=== PATIENT | male | born 1955 | race Caucasian/White ===

== ENCOUNTER 2021-08-21 13:59 | Inpatient (IN) | payer MEDICARE, OTHER ==
[~2021-08-21] VITALS: Ht 170.2 cm; Wt 87.2 kg
[2021-08-21] MEDS ORDERED: SODIUM CHLORIDE 0.9% 1000ML 1,000 ML IV STA (14:16)
[2021-08-21 14:20] LABS: BASOPHILS % 0.3 % (0.0-1.0); EOSINOPHILS # (AUTO) 0.1 (0.0-0.4); EOSINOPHILS % 0.5 % (0.0-6.0); HEMATOCRIT 37.5 % (38.2-49.6); HEMOGLOBIN 11.7 g/dL (14.0-18.0); LYMPHOCYTES # (AUTO) 1.6 (1.0-3.2); LYMPHOCYTES % 16.5 % (18.0-39.1); MEAN CORPUSCULAR HGB CONC 31.2 g/dL (31-35); MEAN CORPUSCULAR VOLUME 86.6 fL (81-99); MONOCYTES # (AUTO) 1.1 (0.2-0.8); MONOCYTES % 11.3 % (4.4-11.3); NEUTROPHILS # (AUTO) 6.8 (2.1-6.9); PLATELET COUNT 227 x10e3/uL (140-360); RED BLOOD COUNT 4.33 x10e6/uL (4.3-5.7); RED CELL DISTRIBUTION WIDTH 13.7 % (11.7-14.4)
[2021-08-21] MEDS ORDERED: Vancomycin IV 1 GM in SODIUM CHLORIDE 0.9% 250ML 250 ML IV ONE (14:30)
[2021-08-21] MEDS ORDERED: PIPERACILLIN/TAZOBACTAM 3.375 GM in SODIUM CHLORIDE 0.9% 50ML 50 ML IV ONE (14:30)
[2021-08-21 14:35] LABS: INR 1.09; PROTHROMBIN TIME 14.9 seconds (11.9-14.5)
[2021-08-21 14:36] LABS: PARTIAL THROMBOPLASTIN TIME 27.3 seconds (23.8-35.5)
[2021-08-21 14:39] LABS: ALANINE AMINOTRANSFERASE < 6 IU/L (0-55); ALBUMIN 3.3 g/dL (3.5-5.0); ALBUMIN/GLOBULIN RATIO 0.9 (0.8-2.0); ALKALINE PHOSPHATASE 53 IU/L (40-150); BLOOD UREA NITROGEN 29 mg/dL (7-26); BUN/CREATININE RATIO 23 (6-25); CALCIUM 9.1 mg/dL (8.4-10.2); CARBON DIOXIDE 25 mmol/L (22-29); CHLORIDE 101 mmol/L (98-107); CREATINE KINASE 239 IU/L (30-200); CREATININE, SERUM 1.24 mg/dL (0.72-1.25); EST GLOMERULAR FILTRATION RATE 58 ML/MIN (60-); GLUCOSE 115 mg/dL (74-118); MAGNESIUM 1.8 MG/DL (1.3-2.1); SODIUM 140 mmol/L (136-145)
[2021-08-21 14:41] LABS: CLARITY,URINE SL CLOUDY (CLEAR); COLOR,URINE AMBER (YELLOW); KETONES,URINE TRACE (NEGATIVE); LEUKOCYTE ESTERASE ,URINE NEGATIVE (NEGATIVE); NITRITE,URINE NEGATIVE (NEGATIVE); PROTEIN,URINE DIPSTICK TRACE (NEGATIVE); URINE UROBILINOGEN 0.2 mg/dL (0.2 - 1)
[2021-08-21 14:58] LABS: THYROID STIMULATING HORMONE 1.614 uIU/mL (0.350-4.940)
[2021-08-21 15:01] LABS: AMORPHOUS SEDIMENT,URINE FEW (FEW); BACTERIA,URINE MODERATE /HPF; HYALINE CASTS 0-1 (0-1)
[2021-08-21] MEDS ORDERED: ASPIRIN81 MG PO (15:14)
[2021-08-21] MEDS ORDERED: METFORMIN HCL500 M2 PO (15:14)
[2021-08-21] MEDS ORDERED: HYDROCHLOROTH12.5 MG PO (15:14)
[2021-08-21] MEDS ORDERED: ROPINIROLE HC0.25 MG PO (15:14)
[2021-08-21] MEDS ORDERED: CARBIDOPA/LEVODOPA PO ×2 (15:14)
[2021-08-21] MEDS ORDERED: ONDANSETRON HCL INJ 2MG/ML 2ML 2 MG/ML VIAL IV PRN (15:45)
[2021-08-21 16:36] VITALS: BP 123/64
[2021-08-21] MEDS ORDERED: METFORMIN HCL500 MG PO (17:04)
[2021-08-21 17:27] VITALS: BP 123/64
[2021-08-21] MEDS: ACETAMINOPHEN 325 MG TAB PO PRN (18:01)
[2021-08-21] MEDS: SODIUM CHLORIDE 0.9% 1000ML 1,000 ML IV SCH (18:06)
[2021-08-21] MEDS ORDERED: DEXTROSE 50% SYRINGE 50 ML IV PRN (19:00)
[2021-08-21 20:04] VITALS: BP 143/73
[2021-08-21 20:35] VITALS: BP 143/73
[2021-08-21 20:38] VITALS: BP 144/70
[2021-08-21] MEDS: CARBIDOPA/LEVODOPA 25/100 TAB PO SCH (20:52)
[2021-08-21] MEDS: INSULIN LISPRO 100 UNIT/1 ML 3ML VIAL SQ SCH (20:58)
[2021-08-21 23:50] LABS: CREATINE KINASE MB 1.5 ng/mL (0-5.0)
[2021-08-22] VITALS (9 sets, daily range): BP systolic 127–139; BP diastolic 62–71
[2021-08-22] MEDS: ACETAMINOPHEN 325 MG TAB PO PRN (01:00)
[2021-08-22] MEDS: HYDROCODONE/APAP 7.5MG-325MG 1 EA TAB PO PRN ×2 (04:40→18:02)
[2021-08-22 05:28] LABS: BASOPHILS % 0.4 % (0.0-1.0); EOSINOPHILS # (AUTO) 0.1 (0.0-0.4); EOSINOPHILS % 1.4 % (0.0-6.0); HEMATOCRIT 33.4 % (38.2-49.6); HEMOGLOBIN 10.7 g/dL (14.0-18.0); LYMPHOCYTES # (AUTO) 1.6 (1.0-3.2); LYMPHOCYTES % 22.2 % (18.0-39.1); MEAN CORPUSCULAR HEMOGLOBIN 26.9 pg (28-32); MEAN CORPUSCULAR VOLUME 83.9 fL (81-99); MONOCYTES # (AUTO) 0.8 (0.2-0.8); MONOCYTES % 11.4 % (4.4-11.3); NEUTROPHILS # (AUTO) 4.5 (2.1-6.9); NEUTROPHILS % 64.3 % (38.7-80.0); PLATELET COUNT 203 x10e3/uL (140-360); RED BLOOD COUNT 3.98 x10e6/uL (4.3-5.7); RED CELL DISTRIBUTION WIDTH 13.3 % (11.7-14.4)
[2021-08-22] MEDS: SODIUM CHLORIDE 0.9% 1000ML 1,000 ML IV SCH (05:51)
[2021-08-22 06:04] LABS: CALCIUM IONIZED 1.1 mmol/L (1.09-1.30)
[2021-08-22 06:07] LABS: CHOL/HDL RATIO 4.4 (3.9-4.7)
[2021-08-22 06:13] LABS: ALBUMIN 2.9 g/dL (3.5-5.0); ALBUMIN/GLOBULIN RATIO 0.9 (0.8-2.0); ALKALINE PHOSPHATASE 48 IU/L (40-150); ANION GAP 13.7 mmol/L (8-16); BLOOD UREA NITROGEN 23 mg/dL (7-26); BUN/CREATININE RATIO 26 (6-25); CALCIUM 8.7 mg/dL (8.4-10.2); CARBON DIOXIDE 24 mmol/L (22-29); CHLORIDE 105 mmol/L (98-107); CREATININE, SERUM 0.87 mg/dL (0.72-1.25); EST GLOMERULAR FILTRATION RATE 88 ML/MIN (60-); GLUCOSE 95 mg/dL (74-118); POTASSIUM 3.7 mmol/L (3.5-5.1); SODIUM 139 mmol/L (136-145)
[2021-08-22 06:21] LABS: MAGNESIUM 1.6 MG/DL (1.3-2.1)
[2021-08-22 06:21] LABS: CREATINE KINASE MB 1.6 ng/mL (0-5.0)
[2021-08-22 06:28] LABS: THYROID STIMULATING HORMONE 1.915 uIU/mL (0.350-4.940)
[2021-08-22 06:35] LABS: ALANINE AMINOTRANSFERASE < 6 IU/L (0-55)
[2021-08-22 06:41] LABS: FERRITIN 146.74 ng/mL (21.81-274.66)
[2021-08-22] MEDS: INSULIN LISPRO 100 UNIT/1 ML 3ML VIAL SQ SCH ×4 (07:30→21:00)
[2021-08-22] MEDS ORDERED: ONDANSETRON HCL 4 MG ORAL DISINTEGRATING TAB PO PRN (09:00)
[2021-08-22] MEDS: CARBIDOPA/LEVODOPA 25/100 TAB PO SCH ×4 (09:29→21:55)
[2021-08-22] MEDS: CYANOCOBALAMIN 1,000 MCG TAB PO SCH (10:33)
[2021-08-22] MEDS: BACLOFEN 10 MG TAB PO PRN ×2 (14:00→21:55)
[2021-08-22] MEDS ORDERED: SIMVASTATIN20 MG PO (14:12)
[2021-08-22] MEDS ORDERED: SINEMET 25-1001 EACH PO (14:12)
[2021-08-22] MEDS ORDERED: CARBIDOPA/LEVODOPA 25/250 TAB PO SCH (17:00)
[2021-08-23] VITALS (8 sets, daily range): BP systolic 132–152; BP diastolic 61–72
[2021-08-23] MEDS: CARBIDOPA/LEVODOPA 25/100 TAB PO SCH ×5 (05:08→21:23)
[2021-08-23] MEDS: BACLOFEN 10 MG TAB PO PRN ×3 (05:08→21:33)
[2021-08-23] MEDS: HYDROCODONE/APAP 7.5MG-325MG 1 EA TAB PO PRN ×3 (05:28→21:23)
[2021-08-23] MEDS: INSULIN LISPRO 100 UNIT/1 ML 3ML VIAL SQ SCH ×4 (07:30→21:25)
[2021-08-23] MEDS: CYANOCOBALAMIN 1,000 MCG TAB PO SCH (09:23)
[2021-08-23] MEDS: ENOXAPARIN SOD INJ 40 MG/0.4 ML SYR SC SCH (16:09)
[2021-08-24] VITALS (8 sets, daily range): BP systolic 136–165; BP diastolic 71–77
[2021-08-24] MEDS: BACLOFEN 10 MG TAB PO PRN ×2 (04:52→16:28)
[2021-08-24] MEDS: CARBIDOPA/LEVODOPA 25/100 TAB PO SCH ×5 (04:52→21:35)
[2021-08-24] MEDS: HYDROCODONE/APAP 7.5MG-325MG 1 EA TAB PO PRN ×2 (04:52→20:00)
[2021-08-24 05:19] LABS: BASOPHILS % 0.6 % (0.0-1.0); EOSINOPHILS # (AUTO) 0.1 (0.0-0.4); EOSINOPHILS % 2.1 % (0.0-6.0); HEMATOCRIT 36.3 % (38.2-49.6); HEMOGLOBIN 11.4 g/dL (14.0-18.0); LYMPHOCYTES # (AUTO) 1.6 (1.0-3.2); LYMPHOCYTES % 30.1 % (18.0-39.1); MEAN CORPUSCULAR HGB CONC 31.4 g/dL (31-35); MEAN CORPUSCULAR VOLUME 85.8 fL (81-99); MONOCYTES # (AUTO) 0.5 (0.2-0.8); MONOCYTES % 10.1 % (4.4-11.3); NEUTROPHILS % 56.9 % (38.7-80.0); PLATELET COUNT 218 x10e3/uL (140-360); RED BLOOD COUNT 4.23 x10e6/uL (4.3-5.7); RED CELL DISTRIBUTION WIDTH 13.1 % (11.7-14.4)
[2021-08-24 06:13] LABS: ALANINE AMINOTRANSFERASE < 6 IU/L (0-55); ALBUMIN/GLOBULIN RATIO 0.9 (0.8-2.0); ALKALINE PHOSPHATASE 49 IU/L (40-150); ANION GAP 14.9 mmol/L (8-16); BLOOD UREA NITROGEN 20 mg/dL (7-26); BUN/CREATININE RATIO 24 (6-25); CALCIUM 8.9 mg/dL (8.4-10.2); CARBON DIOXIDE 24 mmol/L (22-29); CHLORIDE 106 mmol/L (98-107); CREATININE, SERUM 0.84 mg/dL (0.72-1.25); EST GLOMERULAR FILTRATION RATE 91 ML/MIN (60-); GLUCOSE 88 mg/dL (74-118); MAGNESIUM 1.8 MG/DL (1.3-2.1); POTASSIUM 3.9 mmol/L (3.5-5.1); SODIUM 141 mmol/L (136-145)
[2021-08-24] MEDS: INSULIN LISPRO 100 UNIT/1 ML 3ML VIAL SQ SCH ×4 (07:30→21:00)
[2021-08-24] MEDS: CYANOCOBALAMIN 1,000 MCG TAB PO SCH (09:41)
[2021-08-24] MEDS: ENOXAPARIN SOD INJ 40 MG/0.4 ML SYR SC SCH (16:28)
[2021-08-24] MEDS: CYCLOBENZAPRINE HCL 10 MG TAB PO PRN (21:36)
[2021-08-24] MEDS: GABAPENTIN 300 MG CAP PO SCH (23:35)
[2021-08-25] VITALS (8 sets, daily range): BP systolic 136–163; BP diastolic 57–78
[2021-08-25] MEDS: GABAPENTIN 300 MG CAP PO SCH ×3 (05:37→20:52)
[2021-08-25] MEDS: CARBIDOPA/LEVODOPA 25/100 TAB PO SCH ×5 (05:37→20:52)
[2021-08-25] MEDS: INSULIN LISPRO 100 UNIT/1 ML 3ML VIAL SQ SCH ×4 (07:30→20:52)
[2021-08-25] MEDS: CYANOCOBALAMIN 1,000 MCG TAB PO SCH (09:19)
[2021-08-25] MEDS: LISINOPRIL 10 MG TAB PO SCH (13:35)
[2021-08-25] MEDS: ENOXAPARIN SOD INJ 40 MG/0.4 ML SYR SC SCH (16:36)
[2021-08-26] VITALS (7 sets, daily range): BP systolic 132–172; BP diastolic 66–83
[2021-08-26] MEDS: GABAPENTIN 300 MG CAP PO SCH ×4 (05:00→21:12)
[2021-08-26] MEDS: CARBIDOPA/LEVODOPA 25/100 TAB PO SCH ×5 (05:00→21:12)
[2021-08-26] MEDS: BACLOFEN 10 MG TAB PO PRN (05:01)
[2021-08-26] MEDS: INSULIN LISPRO 100 UNIT/1 ML 3ML VIAL SQ SCH ×4 (07:30→21:12)
[2021-08-26] MEDS: LISINOPRIL 10 MG TAB PO SCH (09:40)
[2021-08-26] MEDS: CYANOCOBALAMIN 1,000 MCG TAB PO SCH (09:40)
[2021-08-26] MEDS: ENOXAPARIN SOD INJ 40 MG/0.4 ML SYR SC SCH (16:56)
[2021-08-27] VITALS (7 sets, daily range): BP systolic 136–168; BP diastolic 63–124
[2021-08-27] MEDS: CARBIDOPA/LEVODOPA 25/100 TAB PO SCH ×5 (04:34→20:21)
[2021-08-27] MEDS: BACLOFEN 10 MG TAB PO PRN ×3 (04:35→20:21)
[2021-08-27] MEDS: INSULIN LISPRO 100 UNIT/1 ML 3ML VIAL SQ SCH ×4 (07:30→21:20)
[2021-08-27] MEDS ORDERED: BISACODYL 10 MG SUPP PR PRN (08:45)
[2021-08-27] MEDS: LISINOPRIL 10 MG TAB PO SCH (09:02)
[2021-08-27] MEDS: CYANOCOBALAMIN 1,000 MCG TAB PO SCH (09:03)
[2021-08-27] MEDS: GABAPENTIN 300 MG CAP PO SCH ×3 (09:03→20:21)
[2021-08-27] MEDS: POLYETHYLENE GLYCOL 3350 17 GM PACK PO SCH ×2 (10:49→16:29)
[2021-08-27] MEDS: CYCLOBENZAPRINE HCL 10 MG TAB PO PRN (14:26)
[2021-08-28] VITALS: BP 150/76
[2021-08-28] MEDS: CARBIDOPA/LEVODOPA 25/100 TAB PO SCH ×3 (00:59→12:57)
[2021-08-28 04:30] VITALS: BP 157/76
[2021-08-28 05:52] LABS: BASOPHILS % 0.3 % (0.0-1.0); EOSINOPHILS # (AUTO) 0.1 (0.0-0.4); HEMATOCRIT 35.8 % (38.2-49.6); LYMPHOCYTES # (AUTO) 1.7 (1.0-3.2); MEAN CORPUSCULAR HEMOGLOBIN 27.4 pg (28-32); MEAN CORPUSCULAR HGB CONC 33.5 g/dL (31-35); MEAN CORPUSCULAR VOLUME 81.7 fL (81-99); MONOCYTES # (AUTO) 0.9 (0.2-0.8); MONOCYTES % 12.9 % (4.4-11.3); NEUTROPHILS # (AUTO) 4.3 (2.1-6.9); NEUTROPHILS % 60.4 % (38.7-80.0); PLATELET COUNT 190 x10e3/uL (140-360); RED BLOOD COUNT 4.38 x10e6/uL (4.3-5.7); RED CELL DISTRIBUTION WIDTH 13.1 % (11.7-14.4)
[2021-08-28 06:20] LABS: ALANINE AMINOTRANSFERASE < 6 IU/L (0-55); ALBUMIN 3.1 g/dL (3.5-5.0); ALBUMIN/GLOBULIN RATIO 0.9 (0.8-2.0); ALKALINE PHOSPHATASE 58 IU/L (40-150); BLOOD UREA NITROGEN 21 mg/dL (7-26); BUN/CREATININE RATIO 22 (6-25); CALCIUM 8.5 mg/dL (8.4-10.2); CARBON DIOXIDE 28 mmol/L (22-29); CHLORIDE 104 mmol/L (98-107); CREATININE, SERUM 0.94 mg/dL (0.72-1.25); EST GLOMERULAR FILTRATION RATE 80 ML/MIN (60-); GLUCOSE 103 mg/dL (74-118); MAGNESIUM 1.8 MG/DL (1.3-2.1); SODIUM 140 mmol/L (136-145)
[2021-08-28] MEDS: INSULIN LISPRO 100 UNIT/1 ML 3ML VIAL SQ SCH ×2 (07:30→11:30)
[2021-08-28 08:00] VITALS: BP 163/75
[2021-08-28 08:02] VITALS: BP 157/76
[2021-08-28] MEDS: GABAPENTIN 300 MG CAP PO SCH ×2 (08:20→14:05)
[2021-08-28] MEDS: POLYETHYLENE GLYCOL 3350 17 GM PACK PO SCH (08:20)
[2021-08-28] MEDS ORDERED: BUPIVACAINE HCL 0.5% INJ 30 ML VIAL INJ ONE (08:57)
[2021-08-28] MEDS ORDERED: MUPIROCIN 2% OINT 22 GM TUBE ONE (08:57)
[2021-08-28] MEDS ORDERED: MUPIROCIN 2% OINT 22 GM TUBE TOP SCH (09:00)
[2021-08-28] MEDS ORDERED: LIDOCAINE 2%/ EPINEPHRINE 20ML MDV ONE (09:09)
[2021-08-28] MEDS ORDERED: Vancomycin IV 1 GM VIAL ONE (09:33)
[2021-08-28 11:53] VITALS: BP 145/68
[2021-08-28] MEDS ORDERED: ONDANSETRON HCL INJ 2MG/ML 2ML 2 MG/ML VIAL ONE (12:05)
[2021-08-28] MEDS ORDERED: PROPOFOL IV EMULSION 10 MG/ML 20 ML VIAL ONE (12:05)
[2021-08-28] MEDS ORDERED: LIDOCAINE HCL 2% LOCAL INJ 5 ML SDV VIAL INJ ONE (12:05)
[2021-08-28] MEDS ORDERED: EPHEDRINE SULFATE INJ 50 MG/ML VIAL ONE (12:05)
[2021-08-28] MEDS ORDERED: SEVOFLURANE INHAL SOLN 250 ML PEN BTL ONE (12:05)
[2021-08-28] MEDS ORDERED: POVIDONE IODINE 0.05% 0.05 % ML PO ONE (12:05)
[2021-08-28] MEDS ORDERED: FENTANYL CITRATE/PF 100MCG/2 ML INJ ONE (12:27)
[2021-08-28] MEDS ORDERED: MIRALAX17 GM PO (12:44)
[2021-08-28] MEDS ORDERED: GABAPENTIN300 MG PO (12:44)
[2021-08-28] MEDS ORDERED: DULCOLAX SUPP10 MG PR (12:44)
[2021-08-28] MEDS ORDERED: LISINOPRIL10 MG PO (12:44)
[2021-08-28] MEDS ORDERED: VITAMIN B-121000 MCG PO (12:44)
[2021-08-28] MEDS ORDERED: Insulin Lispro SQ (12:44)
[2021-08-28] MEDS ORDERED: ACETAMINOPHEN325 M1 PO (12:44)
[2021-08-28] MEDS ORDERED: CARBIDOPA-LEVO1 EAC1 PO (12:44)
[2021-08-28] MEDS ORDERED: MUPIROCIN22 GM TOP (12:44)
[2021-08-28] MEDS ORDERED: HYDROCODON-ACE1 EA12 PO (12:44)
[2021-08-28] MEDS ORDERED: ONDANSETRON ODT4 MG PO (12:44)
[2021-08-28] MEDS: CYANOCOBALAMIN 1,000 MCG TAB PO SCH (12:57)
[2021-08-28] MEDS: LISINOPRIL 10 MG TAB PO SCH (12:57)
== END 2021-08-28 15:25 | DRG 623 ==
LOC: ER 14:05 → ERHOLD 15:45 → MED/SURG 16:22
PROVIDERS: ADMIT Internal Medicine; ATTEND Internal Medicine
PROC: 0JBQ0ZZ Excision of Right Foot Subcutaneous Tissue and Fascia, Open Approach (ICD-10-PCS; 2021-08-28)
PROC: 0HBHXZZ Excision of Right Upper Leg Skin, External Approach (ICD-10-PCS; 2021-08-28)
PROC: 0HRMX74 Replacement of Right Foot Skin with Autologous Tissue Substitute, Partial Thickness, External Approach (ICD-10-PCS; principal; 2021-08-28 09:00)
DX: E86.0 Dehydration (principal); M62.82 Rhabdomyolysis; T25.311A Burn of third degree of right ankle, initial encounter; N17.9 Acute kidney failure, unspecified; R53.1 Weakness; G20 Parkinson's disease; I10 Essential (primary) hypertension; Z20.822 Contact with and (suspected) exposure to COVID-19; R53.81 Other malaise; D63.8 Anemia in other chronic diseases classified elsewhere; E11.9 Type 2 diabetes mellitus without complications; Z96.82 Presence of neurostimulator; M10.9 Gout, unspecified; Z86.73 Personal history of transient ischemic attack (TIA), and cerebral infarction without residual deficits; Z81.2 Family history of tobacco abuse and dependence; Z79.82 Long term (current) use of aspirin; Z79.84 Long term (current) use of oral hypoglycemic drugs
CPT/HCPCS: 36415; 70450; 71045; 80053; 80061; 81001; 82140; 82550; 82553; 82607; 82728; 82746; 82948; 83540; 83605; 83735; 83880; 84443; 84466; 84484; 84550; 85025; 85610; 85730; 87040; 87086; 93005; 93306; 94799; 97139; 97605; 97606; 99251; 99284; J1650; J2001; J2405; J2543; J3010; J3370; J7030; J7050; Q0162; U0002

== ENCOUNTER 2021-09-14 20:47 | Inpatient (IN) | payer MEDICARE, OTHER ==
[~2021-09-14] VITALS: Ht 170.2 cm; Wt 87.1 kg
[~2021-09-14 20:47] MED LIST: ACETAMINOPHEN325 M1 PO; ASPIRIN81 MG PO; CARBIDOPA-LEVO1 EAC1 PO; CARBIDOPA/LEVODOPA PO; DULCOLAX SUPP10 MG PR; GABAPENTIN300 MG PO; HYDROCHLOROTH12.5 MG PO; HYDROCODON-ACE1 EA12 PO; Insulin Lispro SQ; LISINOPRIL10 MG PO; METFORMIN HCL500 M2 PO; METFORMIN HCL500 MG PO; MIRALAX17 GM PO; MUPIROCIN22 GM TOP; ONDANSETRON ODT4 MG PO; ROPINIROLE HC0.25 MG PO; SIMVASTATIN20 MG PO; SINEMET 25-1001 EACH PO; VITAMIN B-121000 MCG PO
[2021-09-14 21:49] LABS: BASOPHILS % 0.3 % (0.0-1.0); EOSINOPHILS # (AUTO) 0.1 (0.0-0.4); EOSINOPHILS % 1.4 % (0.0-6.0); HEMATOCRIT 38.3 % (38.2-49.6); HEMOGLOBIN 12.3 g/dL (14.0-18.0); LYMPHOCYTES # (AUTO) 0.7 (1.0-3.2); LYMPHOCYTES % 11.6 % (18.0-39.1); MEAN CORPUSCULAR HEMOGLOBIN 26.5 pg (28-32); MEAN CORPUSCULAR HGB CONC 32.1 g/dL (31-35); MEAN CORPUSCULAR VOLUME 82.4 fL (81-99); MONOCYTES # (AUTO) 0.5 (0.2-0.8); MONOCYTES % 7.8 % (4.4-11.3); NEUTROPHILS % 78.4 % (38.7-80.0); PLATELET COUNT 317 x10e3/uL (140-360); RED BLOOD COUNT 4.65 x10e6/uL (4.3-5.7); RED CELL DISTRIBUTION WIDTH 13.7 % (11.7-14.4)
[2021-09-14 22:02] LABS: ALBUMIN 3.7 g/dL (3.5-5.0); ALBUMIN/GLOBULIN RATIO 0.9 (0.8-2.0); ALKALINE PHOSPHATASE 84 IU/L (40-150); ANION GAP 15.8 mmol/L (8-16); BLOOD UREA NITROGEN 22 mg/dL (7-26); BUN/CREATININE RATIO 12 (6-25); CALCIUM 9.9 mg/dL (8.4-10.2); CARBON DIOXIDE 29 mmol/L (22-29); CHLORIDE 95 mmol/L (98-107); CREATININE, SERUM 1.84 mg/dL (0.72-1.25); EST GLOMERULAR FILTRATION RATE 37 ML/MIN (60-); GLUCOSE 88 mg/dL (74-118); POTASSIUM 3.8 mmol/L (3.5-5.1); SODIUM 136 mmol/L (136-145)
[2021-09-14 22:12] LABS: ALANINE AMINOTRANSFERASE < 6 IU/L (0-55)
[2021-09-14] MEDS: SODIUM CHLORIDE 0.9% 1000ML 1,000 ML IV SCH (22:40)
[2021-09-15] VITALS (9 sets, daily range): BP systolic 121–170; BP diastolic 62–81
[2021-09-15] MEDS ORDERED: [UNRECOGNIZED DRUG - OTHER] PO (03:11)
[2021-09-15] MEDS ORDERED: NICOTINE PATCH1 EAC5 TOP (03:11)
[2021-09-15] MEDS ORDERED: MAPAP325 MG PO (03:11)
[2021-09-15] MEDS ORDERED: DIPHENHYDRAMINE25 MG PO (03:11)
[2021-09-15] MEDS ORDERED: GLUTOSE 1537.5 GM PO (03:11)
[2021-09-15] MEDS ORDERED: MILK OF MA2400 MG/10 PO (03:11)
[2021-09-15] MEDS ORDERED: HYDROCORTISONE10 MG PO (03:11)
[2021-09-15] MEDS ORDERED: CIPROFLOXACIN250 MG PO (03:11)
[2021-09-15] MEDS ORDERED: LOPERAMIDE2 MG PO (03:11)
[2021-09-15] MEDS ORDERED: BUPRENORPHINE1 EAC1 TD (03:11)
[2021-09-15] MEDS ORDERED: CLONIDINE HCL0.1 MG PO (03:11)
[2021-09-15] MEDS ORDERED: FLOMAX0.4 MG PO (03:11)
[2021-09-15] MEDS ORDERED: NEURONTIN300 MG PO (03:11)
[2021-09-15] MEDS ORDERED: DEXTROSE 50%-WA50 ML IV (03:11)
[2021-09-15] MEDS ORDERED: METHOCARBAMOL500 MG PO (03:11)
[2021-09-15] MEDS ORDERED: MAALOX PLUS PO (03:11)
[2021-09-15] MEDS ORDERED: VITAMIN D250 MCG PO (03:11)
[2021-09-15] MEDS ORDERED: PROZAC20 MG PO (03:11)
[2021-09-15] MEDS ORDERED: DEPO-TESTO200 MG/1 M IM (03:11)
[2021-09-15] MEDS ORDERED: ASCORBIC ACID500 M2 PO (03:11)
[2021-09-15] MEDS ORDERED: ENEMA READY TO133 ML RC (03:11)
[2021-09-15] MEDS ORDERED: PROGESTERONE100 MG PO (03:11)
[2021-09-15] MEDS ORDERED: SELSUN BLUE325 ML TOP (03:11)
[2021-09-15] MEDS ORDERED: Tylenol #3 PO ×2 (03:36)
[2021-09-15] MEDS: SODIUM CHLORIDE 0.9% 1000ML 1,000 ML IV SCH ×3 (05:31→23:30)
[2021-09-15 07:46] LABS: ANION GAP 17.4 mmol/L (8-16); CALCIUM 9.3 mg/dL (8.4-10.2); CREATININE, SERUM 1.43 mg/dL (0.72-1.25); POTASSIUM 4.4 mmol/L (3.5-5.1)
[2021-09-15] MEDS ORDERED: BISACODYL 10 MG SUPP PR PRN (09:15)
[2021-09-15] MEDS ORDERED: ONDANSETRON HCL 4 MG ORAL DISINTEGRATING TAB PO PRN (09:15)
[2021-09-15] MEDS ORDERED: ACETAMINOPHEN 325 MG TAB PO PRN (09:15)
[2021-09-15 10:21] LABS: INR 1.06; PARTIAL THROMBOPLASTIN TIME 31.8 seconds (23.8-35.5); PROTHROMBIN TIME 14.8 seconds (11.9-14.5)
[2021-09-15] MEDS: ASPIRIN 81 MG CHEW TAB PO SCH (11:52)
[2021-09-15] MEDS: CIPROFLOXACIN 500 MG TAB PO SCH ×2 (12:03→17:37)
[2021-09-15] MEDS: HYDROCORTISONE 10 MG TAB PO SCH (12:04)
[2021-09-15] MEDS: POLYETHYLENE GLYCOL 3350 17 GM PACK PO SCH ×2 (12:05→17:00)
[2021-09-15] MEDS: METHOCARBAMOL 500 MG TAB PO SCH ×3 (12:05→22:13)
[2021-09-15] MEDS: CARBIDOPA/LEVODOPA 25/100 TAB PO SCH ×3 (12:06→22:13)
[2021-09-15 13:01] LABS: CLARITY,URINE CLEAR (CLEAR); COLOR,URINE YELLOW (YELLOW); LEUKOCYTE ESTERASE ,URINE NEGATIVE (NEGATIVE); NITRITE,URINE NEGATIVE (NEGATIVE)
[2021-09-15 13:02] LABS: KETONES,URINE 1+ (NEGATIVE); PROTEIN,URINE DIPSTICK NEGATIVE (NEGATIVE); URINE UROBILINOGEN 1 mg/dL (0.2 - 1)
[2021-09-15] MEDS: HEPARIN SOD (PORCINE) 5,000 UNIT/ML VIAL SC SCH ×2 (13:03→22:15)
[2021-09-15 13:11] LABS: BACTERIA,URINE MODERATE /HPF; EPITHELIAL CELLS,URINE FEW /LPF; RBC,URINE 0-5 /HPF (0-5); WBC,URINE (MAN) 0-5 /HPF (0-5)
[2021-09-15] MEDS ORDERED: GABAPENTIN 300 MG CAP PO SCH (15:00)
[2021-09-15] MEDS: ASCORBIC ACID 500 MG TAB PO SCH (17:37)
[2021-09-15] MEDS: TAMSULOSIN HCL 0.4 MG CAP PO SCH (22:13)
[2021-09-15] MEDS: ROPINIROLE HCL 0.25 MG TAB PO SCH (22:13)
[2021-09-15] MEDS: METFORMIN HCL 500 MG TAB PO SCH (22:13)
[2021-09-15] MEDS: GABAPENTIN 300 MG CAP PO SCH (22:13)
[2021-09-16] VITALS (8 sets, daily range): BP systolic 125–164; BP diastolic 64–83
[2021-09-16] MEDS: CARBIDOPA/LEVODOPA 25/100 TAB PO SCH ×5 (05:29→21:54)
[2021-09-16] MEDS: METFORMIN HCL 500 MG TAB CR PO SCH (05:29)
[2021-09-16] MEDS: HEPARIN SOD (PORCINE) 5,000 UNIT/ML VIAL SC SCH ×3 (05:30→21:54)
[2021-09-16] MEDS: SODIUM CHLORIDE 0.9% 1000ML 1,000 ML IV SCH ×3 (05:31→21:54)
[2021-09-16] MEDS: POLYETHYLENE GLYCOL 3350 17 GM PACK PO SCH ×2 (09:00→14:46)
[2021-09-16] MEDS: ASCORBIC ACID 500 MG TAB PO SCH ×2 (09:41→15:06)
[2021-09-16] MEDS: METHOCARBAMOL 500 MG TAB PO SCH ×4 (09:41→21:54)
[2021-09-16] MEDS: CYANOCOBALAMIN 1,000 MCG TAB PO SCH (09:41)
[2021-09-16] MEDS: HYDROCORTISONE 10 MG TAB PO SCH (09:41)
[2021-09-16] MEDS: ASPIRIN 81 MG CHEW TAB PO SCH (09:41)
[2021-09-16] MEDS: FLUOXETINE HCL 20 MG CAP PO SCH (09:41)
[2021-09-16] MEDS: CIPROFLOXACIN 500 MG TAB PO SCH (09:41)
[2021-09-16] MEDS ORDERED: FOSFOMYCIN TROMETHAMINE 3 GM PACKET PO NR (10:30)
[2021-09-16] MEDS: METFORMIN HCL 500 MG TAB PO SCH (21:54)
[2021-09-16] MEDS: ROPINIROLE HCL 0.25 MG TAB PO SCH (21:54)
[2021-09-16] MEDS: TAMSULOSIN HCL 0.4 MG CAP PO SCH (21:54)
[2021-09-16] MEDS: GABAPENTIN 300 MG CAP PO SCH (21:54)
[2021-09-17] VITALS (7 sets, daily range): BP systolic 129–176; BP diastolic 57–74
[2021-09-17] MEDS: HEPARIN SOD (PORCINE) 5,000 UNIT/ML VIAL SC SCH ×3 (05:17→21:34)
[2021-09-17] MEDS: SODIUM CHLORIDE 0.9% 1000ML 1,000 ML IV SCH ×2 (05:45→16:13)
[2021-09-17] MEDS: CARBIDOPA/LEVODOPA 25/100 TAB PO SCH ×5 (05:45→21:00)
[2021-09-17] MEDS: METFORMIN HCL 500 MG TAB CR PO SCH (05:45)
[2021-09-17 06:13] LABS: BASOPHILS % 0.4 % (0.0-1.0); EOSINOPHILS # (AUTO) 0.1 (0.0-0.4); EOSINOPHILS % 2.1 % (0.0-6.0); HEMATOCRIT 30.9 % (38.2-49.6); HEMOGLOBIN 9.9 g/dL (14.0-18.0); LYMPHOCYTES # (AUTO) 1.4 (1.0-3.2); LYMPHOCYTES % 28.7 % (18.0-39.1); MEAN CORPUSCULAR HEMOGLOBIN 26.5 pg (28-32); MEAN CORPUSCULAR VOLUME 82.8 fL (81-99); MONOCYTES # (AUTO) 0.6 (0.2-0.8); MONOCYTES % 12.4 % (4.4-11.3); NEUTROPHILS # (AUTO) 2.7 (2.1-6.9); NEUTROPHILS % 56.2 % (38.7-80.0); PLATELET COUNT 230 x10e3/uL (140-360); RED BLOOD COUNT 3.73 x10e6/uL (4.3-5.7); RED CELL DISTRIBUTION WIDTH 13.5 % (11.7-14.4)
[2021-09-17 06:26] LABS: ANION GAP 10.8 mmol/L (8-16); CREATININE, SERUM 0.72 mg/dL (0.72-1.25); MAGNESIUM 1.2 MG/DL (1.3-2.1); POTASSIUM 3.8 mmol/L (3.5-5.1)
[2021-09-17] MEDS: FLUOXETINE HCL 20 MG CAP PO SCH (09:30)
[2021-09-17] MEDS: METHOCARBAMOL 500 MG TAB PO SCH ×4 (09:30→20:51)
[2021-09-17] MEDS: HYDROCORTISONE 10 MG TAB PO SCH (09:30)
[2021-09-17] MEDS: CYANOCOBALAMIN 1,000 MCG TAB PO SCH (09:30)
[2021-09-17] MEDS: POLYETHYLENE GLYCOL 3350 17 GM PACK PO SCH ×2 (09:30→16:01)
[2021-09-17] MEDS: ASPIRIN 81 MG CHEW TAB PO SCH (09:30)
[2021-09-17] MEDS: ASCORBIC ACID 500 MG TAB PO SCH ×2 (09:30→16:01)
[2021-09-17] MEDS: MAGNESIUM SULFATE 2GM/50ML 50 ML IV SCH ×2 (12:04→14:39)
[2021-09-17] MEDS: MUPIROCIN 2% OINT 22 GM TUBE TOP SCH (16:01)
[2021-09-17] MEDS: GABAPENTIN 300 MG CAP PO SCH (20:50)
[2021-09-17] MEDS: TAMSULOSIN HCL 0.4 MG CAP PO SCH (20:50)
[2021-09-17] MEDS: ROPINIROLE HCL 0.25 MG TAB PO SCH (20:50)
[2021-09-17] MEDS: METFORMIN HCL 500 MG TAB PO SCH (20:50)
[2021-09-17] MEDS: CLONIDINE HCL 0.1 MG TAB PO PRN (21:40)
[2021-09-18] MEDS: CARBIDOPA/LEVODOPA 25/100 TAB PO SCH ×5 (05:00→20:28)
[2021-09-18 05:48] VITALS: BP 150/69
[2021-09-18 05:56] LABS: BASOPHILS % 0.2 % (0.0-1.0); EOSINOPHILS # (AUTO) 0.1 (0.0-0.4); EOSINOPHILS % 1.6 % (0.0-6.0); LYMPHOCYTES # (AUTO) 1.1 (1.0-3.2); MEAN CORPUSCULAR HEMOGLOBIN 27.2 pg (28-32); MEAN CORPUSCULAR HGB CONC 33.3 g/dL (31-35); MEAN CORPUSCULAR VOLUME 81.5 fL (81-99); MONOCYTES # (AUTO) 0.5 (0.2-0.8); MONOCYTES % 11.1 % (4.4-11.3); NEUTROPHILS # (AUTO) 2.6 (2.1-6.9); NEUTROPHILS % 60.6 % (38.7-80.0); PLATELET COUNT 214 x10e3/uL (140-360); RED BLOOD COUNT 3.68 x10e6/uL (4.3-5.7); RED CELL DISTRIBUTION WIDTH 13.6 % (11.7-14.4)
[2021-09-18] MEDS: HEPARIN SOD (PORCINE) 5,000 UNIT/ML VIAL SC SCH ×3 (06:00→20:27)
[2021-09-18] MEDS: METFORMIN HCL 500 MG TAB CR PO SCH (06:00)
[2021-09-18] MEDS: SODIUM CHLORIDE 0.9% 1000ML 1,000 ML IV SCH (06:20)
[2021-09-18 06:21] LABS: ANION GAP 12.6 mmol/L (8-16); CALCIUM 8.4 mg/dL (8.4-10.2); CREATININE, SERUM 0.69 mg/dL (0.72-1.25); MAGNESIUM 1.6 MG/DL (1.3-2.1); POTASSIUM 3.6 mmol/L (3.5-5.1)
[2021-09-18 08:52] VITALS: BP 155/70
[2021-09-18 09:22] VITALS: BP 155/70
[2021-09-18] MEDS: ASCORBIC ACID 500 MG TAB PO SCH ×2 (09:43→15:57)
[2021-09-18] MEDS: POLYETHYLENE GLYCOL 3350 17 GM PACK PO SCH ×2 (09:43→15:57)
[2021-09-18] MEDS: HYDROCORTISONE 10 MG TAB PO SCH (09:43)
[2021-09-18] MEDS: ASPIRIN 81 MG CHEW TAB PO SCH (09:43)
[2021-09-18] MEDS: METHOCARBAMOL 500 MG TAB PO SCH ×4 (09:43→20:28)
[2021-09-18] MEDS: CYANOCOBALAMIN 1,000 MCG TAB PO SCH (09:43)
[2021-09-18] MEDS: MUPIROCIN 2% OINT 22 GM TUBE TOP SCH ×2 (09:43→15:57)
[2021-09-18] MEDS: FLUOXETINE HCL 20 MG CAP PO SCH (09:43)
[2021-09-18 12:32] VITALS: BP 167/78
[2021-09-18 17:20] VITALS: BP 165/70
[2021-09-18 20:28] VITALS: BP 187/83
[2021-09-18] MEDS: TAMSULOSIN HCL 0.4 MG CAP PO SCH (20:28)
[2021-09-18] MEDS: GABAPENTIN 300 MG CAP PO SCH (20:28)
[2021-09-18] MEDS: METFORMIN HCL 500 MG TAB PO SCH (20:28)
[2021-09-18] MEDS: ROPINIROLE HCL 0.25 MG TAB PO SCH (20:28)
[2021-09-19] VITALS (7 sets, daily range): BP systolic 162–183; BP diastolic 67–93
[2021-09-19] MEDS: CARBIDOPA/LEVODOPA 25/100 TAB PO SCH ×5 (05:00→22:06)
[2021-09-19] MEDS: METFORMIN HCL 500 MG TAB CR PO SCH (05:59)
[2021-09-19] MEDS: HEPARIN SOD (PORCINE) 5,000 UNIT/ML VIAL SC SCH ×3 (06:00→22:11)
[2021-09-19] MEDS: POLYETHYLENE GLYCOL 3350 17 GM PACK PO SCH ×2 (09:00→17:00)
[2021-09-19] MEDS: FLUOXETINE HCL 20 MG CAP PO SCH (09:47)
[2021-09-19] MEDS: HYDROCORTISONE 10 MG TAB PO SCH (09:47)
[2021-09-19] MEDS: ASPIRIN 81 MG CHEW TAB PO SCH (09:47)
[2021-09-19] MEDS: METHOCARBAMOL 500 MG TAB PO SCH ×4 (09:47→22:06)
[2021-09-19] MEDS: ASCORBIC ACID 500 MG TAB PO SCH ×2 (09:48→17:29)
[2021-09-19] MEDS: CYANOCOBALAMIN 1,000 MCG TAB PO SCH (09:48)
[2021-09-19] MEDS: MUPIROCIN 2% OINT 22 GM TUBE TOP SCH ×2 (11:00→17:29)
[2021-09-19] MEDS: LOSARTAN POTASSIUM 25 MG TAB PO SCH (12:45)
[2021-09-19] MEDS: SODIUM CHLORIDE 0.9% 1000ML 1,000 ML IV SCH ×2 (14:30→22:07)
[2021-09-19] MEDS: ROPINIROLE HCL 0.25 MG TAB PO SCH (22:06)
[2021-09-19] MEDS: TAMSULOSIN HCL 0.4 MG CAP PO SCH (22:06)
[2021-09-19] MEDS: METFORMIN HCL 500 MG TAB PO SCH (22:06)
[2021-09-19] MEDS: GABAPENTIN 300 MG CAP PO SCH (22:06)
[2021-09-20] VITALS (7 sets, daily range): BP systolic 128–187; BP diastolic 56–86
[2021-09-20] MEDS: HYDRALAZINE HCL 20 MG/ML VIAL IV PRN ×2 (00:47→18:20)
[2021-09-20] MEDS: HEPARIN SOD (PORCINE) 5,000 UNIT/ML VIAL SC SCH ×2 (06:12→14:30)
[2021-09-20] MEDS: SODIUM CHLORIDE 0.9% 1000ML 1,000 ML IV SCH (06:12)
[2021-09-20] MEDS: METFORMIN HCL 500 MG TAB CR PO SCH (06:12)
[2021-09-20] MEDS: CARBIDOPA/LEVODOPA 25/100 TAB PO SCH ×4 (06:12→17:33)
[2021-09-20] MEDS: POLYETHYLENE GLYCOL 3350 17 GM PACK PO SCH ×2 (09:00→17:00)
[2021-09-20] MEDS: ASPIRIN 81 MG CHEW TAB PO SCH (09:23)
[2021-09-20] MEDS: LOSARTAN POTASSIUM 25 MG TAB PO SCH (09:23)
[2021-09-20] MEDS: HYDROCORTISONE 10 MG TAB PO SCH (09:23)
[2021-09-20] MEDS: FLUOXETINE HCL 20 MG CAP PO SCH (09:23)
[2021-09-20] MEDS: METHOCARBAMOL 500 MG TAB PO SCH ×3 (09:23→17:33)
[2021-09-20] MEDS: CYANOCOBALAMIN 1,000 MCG TAB PO SCH (09:24)
[2021-09-20] MEDS: ASCORBIC ACID 500 MG TAB PO SCH ×2 (09:24→17:33)
[2021-09-20] MEDS: MUPIROCIN 2% OINT 22 GM TUBE TOP SCH ×2 (10:48→17:01)
[2021-09-20] MEDS: CLONIDINE HCL 0.1 MG TAB PO PRN (16:04)
== END 2021-09-20 18:45 | disposition home or self-care (01) | DRG 682 ==
LOC: ER 20:57 → ERHOLD 23:00 → MED/SURG3 23:40
PROVIDERS: ADMIT Internal Medicine; ATTEND Internal Medicine
PROC: 8E0ZXY6 Isolation (ICD-10-PCS; principal; 2021-09-14)
DX: N17.9 Acute kidney failure, unspecified (principal); U07.1 COVID-19; N39.0 Urinary tract infection, site not specified; G20 Parkinson's disease; I10 Essential (primary) hypertension; E86.0 Dehydration; D64.9 Anemia, unspecified; B96.4 Proteus (mirabilis) (morganii) as the cause of diseases classified elsewhere; R53.81 Other malaise; T25.311D Burn of third degree of right ankle, subsequent encounter; Z75.1 Person awaiting admission to adequate facility elsewhere; Z86.73 Personal history of transient ischemic attack (TIA), and cerebral infarction without residual deficits; E11.9 Type 2 diabetes mellitus without complications; R00.1 Bradycardia, unspecified
CPT/HCPCS: 36415; 71045; 80048; 80053; 81001; 82948; 83735; 84484; 85025; 85610; 85730; 87086; 93005; 94799; 96361; 97139; 99251; 99285; J0360; J1644; J3475; J7030; U0002